=== PATIENT | male | born 1990 | race Two or more races ===

== ENCOUNTER 2020-08-24 20:10 | Inpatient (IN) | payer MEDICAID ==
[~2020-08-24] VITALS: Ht 170.2 cm; Wt 82.7 kg
[2020-08-24 13:40] VITALS: BP 139/89
[2020-08-24] MEDS ORDERED: LORazepam 2 MG TABLET PO PRN (23:15)
[2020-08-24] MEDS ORDERED: QUEtiapine FUMARATE 100 MG TABLET PO PRN (23:15)
[2020-08-24] MEDS ORDERED: OLAN2.5T3 PO (23:56)
[2020-08-24] MEDS ORDERED: HYDR-4031 PO (23:56)
[2020-08-25 00:34] LABS: COVID AG,FIA SOURCE NASOPHARYNGEAL
[2020-08-25] MEDS: ZOLPIDEM TARTRATE 10 MG TABLET PO PRN (01:58)
[2020-08-25] MEDS ORDERED: LORazepam 2 MG TABLET PO ONE (02:00)
[2020-08-25 02:10] LABS: EOSINOPHILS % (AUTO) 5.1 % (1.0-6.0); HEMATOCRIT 43.6 % (41-53); HEMOGLOBIN 15.1 g/dL (13.5-17.5); LYMPHOCYTES # (AUTO) 1.4 K/uL (1.0-4.8); LYMPHOCYTES % (AUTO) 28.9 % (22.0-44.0); MEAN CORPUSCULAR HEMOGLOBIN 30.5 pg (26.0-34.0); MEAN CORPUSCULAR HGB CONC 34.6 G/dL (31.0-37.0); MEAN CORPUSCULAR VOLUME 88 fL (80-100); MONOCYTES # (AUTO) 0.5 K/uL (0.1-1.0); NEUTROPHILS # (AUTO) 2.6 K/uL (1.8-7.7); PLATELET COUNT (AUTO) 325 K/uL (150-450); RED BLOOD CELL COUNT(AUTO) 4.96 MIL/uL (4.50-5.90); RED CELL DISTRIBUTION WIDTH 14.5 % (11.5-14.5)
[2020-08-25 02:21] LABS: ANION GAP 9 mmol/L (8-16); CALCIUM, TOTAL 9.6 mg/dL (8.8-10.5); CARBON DIOXIDE 30 mmol/L (22-29); CHLORIDE 106 mmol/L (98-107); CREATININE 0.92 mg/dL (0.60-1.30); GLOMERULAR FILTR. RATE CALC > 60 mL/min (>60); GLUCOSE,RANDOM 142 mg/dL (70-110); POTASSIUM 3.7 mmol/L (3.5-5.1); SODIUM SERUM 145 mmol/L (136-145); UREA NITROGEN, BLOOD 7 mg/dL (7-18)
[2020-08-25 02:27] LABS: ALANINE AMINOTRANSFERASE 21 U/L (12-78); ALBUMIN 4.1 g/dL (3.4-5.0); ALKALINE PHOSPHATASE 96 U/L (46-116); ASPARTATE AMINOTRANSFERASE 16 U/L (15-37); BILIRUBIN,TOTAL 0.4 mg/dL (0.1-1.0); TOTAL PROTEIN, SERUM 7.3 g/dL (6.4-8.2)
[2020-08-25 03:30] LABS: AMPHET/METH SCREEN,URINE POSITIVE (NEGATIVE); BARBITURATE SCREEN, URINE NEGATIVE (NEGATIVE); BENZODIAZEPINES SCREEN,URINE NEGATIVE (NEGATIVE); CANNABINOID SCREEN,URINE NEGATIVE (NEGATIVE); COCAINE SCREEN,URINE NEGATIVE (NEGATIVE); METHADONE SCREEN, URINE NEGATIVE (NEGATIVE); OPIATE SCREEN,URINE NEGATIVE (NEGATIVE)
[2020-08-25] MEDS ORDERED: HALOPERIDOL LACTATE 5 MG/ML VIAL IM ONE (03:30)
[2020-08-25] MEDS ORDERED: DiphenhydrAMINE HCL 50 MG/ML VIAL IM ONE (03:30)
[2020-08-25] MEDS ORDERED: LORazepam 2 MG/ML VIAL IM ONE (03:30)
[2020-08-25 03:33] LABS: PHENCYCLIDINE SCREEN,URINE NEGATIVE (NEGATIVE)
[2020-08-25 13:40] VITALS: BP 139/89
[2020-08-25 14:00] VITALS: BP 139/89
[2020-08-25] MEDS ORDERED: PNEUMOCOCCAL VACCINE POLYVALENT 0.5 ML VIAL [PPSV23] IM ONE (14:00)
[2020-08-25] MEDS ORDERED: INFLUENZA VIRUS VACCINE QVS 2020-21 (6MO+)/PF 60 MCG/0.5 ML SYRINGE IM ONE (14:00)
[2020-08-26 05:51] VITALS: BP 100/63
[2020-08-26 12:53] VITALS: BP 118/71
[2020-08-26 17:05] VITALS: BP 137/60
[2020-08-26] MEDS: OLANZapine 5 MG TABLET PO SCH (20:02)
[2020-08-27 01:37] VITALS: BP 108/66
[2020-08-27 08:34] VITALS: BP 118/66
[2020-08-27 16:18] VITALS: BP 106/64
[2020-08-27] MEDS: OLANZapine 5 MG TABLET PO SCH (20:24)
[2020-08-28 06:03] VITALS: BP 102/63
[2020-08-28 08:42] VITALS: BP 130/87
[2020-08-28 16:06] VITALS: BP 136/79
[2020-08-28] MEDS ORDERED: CloNIDine HCL 0.1 MG TABLET PO PRN (16:45)
[2020-08-28] MEDS ORDERED: IBUPROFEN 400 MG TABLET PO PRN (16:45)
[2020-08-28] MEDS ORDERED: ACETAMINOPHEN 325 MG TABLET PO PRN (16:45)
[2020-08-28] MEDS ORDERED: ONDANSETRON HCL 4 MG TABLET PO PRN (16:45)
[2020-08-28] MEDS ORDERED: LOPERAMIDE HCL 2 MG CAPSULE PO PRN (16:45)
[2020-08-28] MEDS ORDERED: DOCUSATE SODIUM 100 MG CAPSULE PO PRN (16:45)
[2020-08-28] MEDS ORDERED: ALBUTEROL SULFATE HFA 90 MCG/PUFF 8 GM INHALER IH PRN (16:45)
[2020-08-28] MEDS ORDERED: PETROLATUM,WHITE 28 GM JELLY TP PRN (16:45)
[2020-08-28] MEDS ORDERED: MAG HYDROX/AL HYDROX/SIMETH ES 30 ML SUSPENSION UDCUP PO PRN (16:45)
[2020-08-28] MEDS ORDERED: GuaiFENesin/D-METHORPHAN [SUGAR-FREE] 200-20MG/10 ML SYRUP UDCUP PO PRN (16:45)
[2020-08-28] MEDS ORDERED: LACTULOSE 20 GM/30 ML SOLUTION UDCUP PO ONE (17:30)
[2020-08-28] MEDS: OLANZapine 5 MG TABLET PO SCH (20:49)
[2020-08-29 00:17] VITALS: BP 127/72
[2020-08-29 08:10] VITALS: BP 107/60
[2020-08-29 16:26] VITALS: BP 128/82
[2020-08-29] MEDS: OLANZapine 5 MG TABLET PO SCH (20:19)
[2020-08-30 02:03] VITALS: BP 105/66
[2020-08-30 08:16] VITALS: BP 110/71
[2020-08-30 16:16] VITALS: BP 132/80
[2020-08-30] MEDS: OLANZapine 5 MG TABLET PO SCH (20:15)
[2020-08-31 06:35] VITALS: BP 118/70
[2020-08-31 09:43] VITALS: BP 122/62
[2020-08-31] MEDS: NICOTINE 14 MG/24 HOUR PATCH TD PRN (13:01)
[2020-08-31 16:18] VITALS: BP 132/61
[2020-08-31] MEDS: OLANZapine 5 MG TABLET PO SCH (20:10)
[2020-08-31] MEDS: ZOLPIDEM TARTRATE 10 MG TABLET PO PRN (22:31)
[2020-09-01 04:26] VITALS: BP 124/86
[2020-09-01] MEDS: NICOTINE 14 MG/24 HOUR PATCH TD PRN (08:16)
[2020-09-01 10:04] VITALS: BP 135/68
[2020-09-01] MEDS: MAGNESIUM HYDROXIDE SUSPENSION 30 ML UDCUP PO PRN (16:02)
[2020-09-01 16:18] VITALS: BP 129/79
[2020-09-01] MEDS: OLANZapine 5 MG TABLET PO SCH (20:06)
[2020-09-02 00:50] VITALS: BP 122/72
[2020-09-02 08:35] VITALS: BP 128/76
[2020-09-02] MEDS: NICOTINE 14 MG/24 HOUR PATCH TD PRN (13:44)
[2020-09-02] MEDS: MAGNESIUM HYDROXIDE SUSPENSION 30 ML UDCUP PO PRN (16:01)
[2020-09-02 16:17] VITALS: BP 132/64
[2020-09-02] MEDS: OLANZapine 5 MG TABLET PO SCH (20:17)
[2020-09-02] MEDS: ZOLPIDEM TARTRATE 10 MG TABLET PO PRN (22:24)
[2020-09-03 04:37] VITALS: BP 107/80
[2020-09-03 08:58] VITALS: BP 119/78
[2020-09-03] MEDS: NICOTINE 14 MG/24 HOUR PATCH TD PRN (09:28)
[2020-09-03 16:08] VITALS: BP 124/74
[2020-09-03] MEDS: OLANZapine 5 MG TABLET PO SCH (20:32)
[2020-09-04 00:59] VITALS: BP 131/74
[2020-09-04] MEDS: NICOTINE 14 MG/24 HOUR PATCH TD PRN (08:09)
[2020-09-04 08:11] VITALS: BP 132/72
[2020-09-04 16:13] VITALS: BP 134/84
[2020-09-04] MEDS ORDERED: OLAN5TAB2 PO (17:37)
== END 2020-09-04 18:00 | disposition home or self-care (01) | DRG 750 ==
LOC: EMS 20:15 → B2S 08-25 12:42
DX: F20.0 Paranoid schizophrenia (principal); G93.40 Encephalopathy, unspecified; F10.129 Alcohol abuse with intoxication, unspecified; Y90.9 Presence of alcohol in blood, level not specified; F19.10 Other psychoactive substance abuse, uncomplicated; F17.210 Nicotine dependence, cigarettes, uncomplicated; F15.10 Other stimulant abuse, uncomplicated; R73.9 Hyperglycemia, unspecified; Z20.828 Contact with and (suspected) exposure to other viral communicable diseases; Z91.14 Patient's other noncompliance with medication regimen; Z28.21 Immunization not carried out because of patient refusal
CPT/HCPCS: 83036; 87426; 99291; G0480; J1200; J1630; J2060